=== PATIENT | female | born 1965 | race Caucasian/White ===

== ENCOUNTER → 2018-10-12 | Outpatient (CLI) | payer BC ==
[~2018-10-12] MED LIST: ALPR-434 PO; ASPI-1471 PO; BUPR-133 PO; GABA-549 PO; MULT1TAB64 PO; QUET50TA21 PO
== END ==
LOC: AMB 10:08
PROVIDERS: ATTEND Nurse Practitioner
DX: R07.9 Chest pain, unspecified (principal); R53.1 Weakness
CPT/HCPCS: A0425; A0427